=== PATIENT | female | born 1945 | race Two or more races ===

== ENCOUNTER → 2025-07-28 | Outpatient (CLI) | payer MEDICARE, MEDICAID, SELFPAY ==
--- NOTE | 2025-07-28 08:39 | XR_ITS ---
Examination: Lumbar spine, 5 views Technique: Lumbar spine AP, lateral, coned lateral lower lumbar spine, bilateral obliques 5 views Exam date and time: July 28, 2025 0852 hours INDICATIONS: Lower back pain beginning 3 months ago COMPARISON: December 11, 2019 FINDINGS: Prominent osteopenia Lumbar levoscoliosis 10 degrees Mild diffuse facet arthropathy Grade 1 anterolisthesis L5 on S1 No lumbar fracture Mild lumbar spondylosis Mild to moderate diffuse lumbar disc narrowing IMPRESSION: Mild to moderate diffuse lumbar degenerative disc disease with spinal stenosis
--- NOTE | 2025-07-28 08:39 | XR_ITS ---
Examination: Sacrum and coccyx 3 views Technique AP, inclined AP, lateral sacral coccyx 3 views Date and time: July 28, 2025 0917 hours INDICATIONS: Syncopal pain 3 months. FINDINGS: Severe osteopenia. Symmetrical sacral foramina. Moderate bilateral sacroiliitis. Satisfactory alignment sacral and coccygeal segments on the lateral view no fracture IMPRESSION: No sacral or coccygeal fracture
== END | disposition home or self-care (01) ==
PROVIDERS: PCP Physician Assistant Medical; Referring Provider Physician Assistant Medical; Visit Provider Physician Assistant Medical
DX: M51.360 Other intervertebral disc degeneration, lumbar region with discogenic back pain only (principal); M48.061 Spinal stenosis, lumbar region without neurogenic claudication
CPT/HCPCS: 72110; 72220